=== PATIENT | male | born 1970 | race Caucasian/White ===

== ENCOUNTER 2023-12-31 05:29 | Emergency (ER) | payer OTHER ==
[~2023-12-31] VITALS: Ht 188 cm; Wt 143.0 kg
[2023-12-31 05:29] VITALS: BP 151/96; PULSE 95; RESP 14; O2SAT 96
[2023-12-31] MEDS ORDERED: AUG875T PO (06:39)
[2023-12-31] MEDS ORDERED: NABU-72 PO (06:39)
== END 2023-12-31 06:55 | disposition home or self-care (01) ==
LOC: ER 05:29
DX: K11.21 Acute sialoadenitis (principal); Z79.899 Other long term (current) drug therapy